=== PATIENT | male | born 1955 | race Hispanic/Latino ===

== ENCOUNTER 2018-08-06 08:51 | Inpatient (IN) | payer MEDICARE ==
--- NOTE | 2018-08-06 09:12 | C.PDOC ---
Time Seen by Provider: 08/06/18 09:02 Chief Complaint (Nursing): Chest Pain Past Medical History Vital Signs: Last Vital Signs Temp 98.5 F 08/06/18 08:58 Pulse 94 H 08/06/18 08:58 Resp 20 08/06/18 08:58 BP 103/68 08/06/18 08:58 Pulse Ox 96 08/06/18 08:58 - Medical History PMH: COPD, HTN, Hypercholesterolemia, Chronic Kidney Disease Denies: Atrial Fibrillation, CHF Surgical History: Coronary Stent (x 2 2014) Family History: States: Unknown Family Hx - Social History Hx Tobacco Use: Yes Hx Alcohol Use: Yes (socially) Hx Substance Use: No - Immunization History Hx Tetanus Toxoid Vaccination: No Hx Influenza Vaccination: No Hx Pneumococcal Vaccination: No ED Course And Treatment O2 Sat by Pulse Oximetry: 96 Disposition - Disposition
[2018-08-06] MEDS ORDERED: Aspirin 325 mg EC Tablets PO STA (09:21)
--- NOTE | 2018-08-06 09:26 | C.PDOC ---
History Of Present Illness 63 years old male with Hx of A-fib (1-year-ago) and 2-Coronary Stents (Many years ago) presents to ED for complaints of worsening shortness of breath and left sided chest pain that began 2 days ago. Patient reports symptoms were sudd en onset and began while he was laying on the ground working. Patient also reports associated mild arm pain. Denies back pain, swelling in lower extremities, pleuritic chest pain, nausea, abdominal pain, or any other physical complaints. Patient is compliant with medication. PMD: Sukhjinder Yanez Lead Radiation Therapist: Sukhjinder Pineda Time Seen by Provider: 08/06/18 09:02 Chief Complaint (Nursing): Chest Pain History Per: Patient History/Exam Limitations: no limitations Onset/Duration Of Symptoms: Days (4), Sudden Onset, Worse Since Current Symptoms Are (Timing): Still Present Modifying Factors: None Exacerbating Factors: Exertion Alleviating Factors: None Recent travel outside of the [place]: No Past Medical History Reviewed: Historical Data, Nursing Documentation, Vital Signs Vital Signs: Last Vital Signs Temp 98.5 F 08/06/18 08:58 Pulse 94 H 08/06/18 08:58 Resp 20 08/06/18 08:58 BP 103/68 08/06/18 08:58 Pulse Ox 96 08/06/18 09:12 - Medical History PMH: Atrial Fibrillation, COPD, HTN, Hypercholesterolemia, Chronic Kidney Disease Surgical History: Coronary Stent (x 2 2015) Family History: States: Unknown Family Hx - Social History Hx Tobacco Use: Yes Hx Alcohol Use: Yes (socially) Hx Substance Use: No - Immunization History Hx Tetanus Toxoid Vaccination: No Hx Influenza Vaccination: No Hx Pneumococcal Vaccination: No Review Of Systems Constitutional: Negative for: Fever, Chills Cardiovascular: Positive for: Chest Pain Respiratory: Positive for: Shortness of Breath. Negative for: Cough, Pleuritic Pain Gastrointestinal: Negative for: Nausea, Vomiting, Abdominal Pain, Diarrhea Musculoskeletal: Positive for: Arm Pain Skin: Negative for: Rash Neurological: Negative for: Weakness, Numbness Physical Exam - Physical Exam Appears: Non-toxic, No Acute Distress, Other (Obese Male) Skin: Normal Color, Warm, Dry, No Rash Head: Atraumatic, Normacephalic Eye(s): bilateral: Normal Inspection, PERRL, EOMI Ear(s): Bilateral: Normal Oral Mucosa: Moist Neck: Normal ROM, Supple Chest: Symmetrical, No Tenderness Cardiovascular: Rhythm Regular, No JVD Respiratory: Normal Breath Sounds, No Decreased Breath Sounds, No Rales, No Rhonchi, No Wheezing Gastrointestinal/Abdominal: Bowel Sounds (Active ), Soft, No Tenderness, No Distention, No Guarding, No Rebound Back: Normal Inspection, No CVA Tenderness Extremity: Normal ROM, No Pedal Edema, No Calf Tenderness, Capillary Refill (<2 seconds ), No Deformity, No Swelling Extremity: Bilateral: Atraumatic, Normal Color And Temperature, Normal ROM Pulses: Left Radial: Normal, Right Radial: Normal Neurological/Psych: Oriented x3, Normal Speech, Other (No focal deficits ) Gait: Steady ED Course And Treatment - Laboratory Results Result Diagrams: 08/06/18 14:37 08/06/18 09:30 O2 Sat by Pulse Oximetry: 96 (RA) Pulse Ox Interpretation: Normal - Other Rad CXR X-Ray: Viewed By Me, Read By Radiologist Interpretation: Date of service: 08/06/2018. PROCEDURE: CHEST RADIOGRAPH, 1 VIEW. HISTORY: chest pain. COMPARISON: None available. FINDINGS: LUNGS: Mild bibasilar atelectasis both lung bases right greater than left. There may also be some discrete linear scarring is well. PLEURA: No pneumothorax or pleural fluid seen. CARDIOVASCULAR: Cardiomegaly. OSSEOUS STRUCTURES: No significant abnormalities. VISUALIZED UPPER ABDOMEN: Normal. OTHER FINDINGS: None. IMPRESSION: Mild bibasilar atelectasis both lung bases right greater than left. There may also be some discrete linear scarring is well Medical Decision Making Medical Decision Making: Plan: * Aspirin * Morphine * Cardizem * CXR * Blood Work EKG: * Sinus A-Fib at 125 bpm * T-Wave abnormalities * 2 AVL * 2 AVF * Changes compared to Prior EKG Cardizem 10mg IV ordered. On re-exam, the heart rate has decreased to 99-103. The case was discussed with Dr. Jon (hospitalist) who agrees to placed the patient on telemetry. The case was discussed with Dr. Doyle (cardiology) who agrees with plan and will consult on the case. Disposition - Disposition Disposition: HOSPITALIZED Disposition Time: 09:45 Condition: GUARDED - Clinical Impression Clinical Impression: Chest pain, ACS (acute coronary syndrome), Atrial fibrillation - PA / APPRENTICE TECHNICIAN / Resident Statement MD/DO has reviewed & agrees with the documentation as recorded. - Scribe Statement The provider has reviewed the documentation as recorded by the Luis Carlton All medical record entries made by the Luis were at my direction and p ersonally dictated by me. I have reviewed the chart and agree that the record accurately reflects my personal performance of the history, physical exam, medical decision making, and the department course for this patient. I have also personally directed, reviewed, and agree with the discharge instructions and disposition.
[2018-08-06 09:34] LABS: BASO # 0.1 K/uL (0.0-0.2); BASO % 0.7 % (0.0-2.0); EOS # 0.1 K/uL (0.0-0.7); HEMOGLOBIN 15.3 g/dL (12.0-18.0); LYMPH # 1.1 K/uL (1.0-4.3); LYMPH % 11.1 % (20.0-40.0); MEAN CORPUSCULAR HEMOGLOBIN 29.3 pg (27.0-31.0); MEAN CORPUSCULAR HGB CONC 33.7 g/dL (33.0-37.0); MEAN PLATELET VOLUME 8.9 fL (7.2-11.7); MONO # 0.8 K/uL (0.0-0.8); MONO % 8.3 % (0.0-10.0); NEUT # 7.5 K/uL (1.8-7.0); NEUT % 78.9 % (50.0-75.0); NRBC % 0.1 % (0.0-2.0); RBC 5.21 Mil/uL (4.40-5.90); RED CELL DISTRIBUTION WIDTH 15.1 % (11.5-14.5); WHITE BLOOD COUNT 9.5 K/uL (4.8-10.8)
[2018-08-06] MEDS ORDERED: Aspirin 325 mg EC Tablets PO ONE (09:34)
[2018-08-06 09:42] LABS: INR 1.2; PROTHROMBIN TIME 12.8 SECONDS (9.7-12.2)
[2018-08-06 09:48] LABS: ALB/GLOB RATIO 1.2 (1.0-2.1); ALBUMIN 3.9 g/dL (3.5-5.0); CALCIUM 9.1 mg/dl (8.6-10.4)
[2018-08-06 10:02] LABS: TROPONIN I 0.018 ng/mL (0.00-0.120)
[2018-08-06 11:36] VITALS: RESP 20
--- NOTE | 2018-08-06 11:59 | CP.PCM.HP ---
History of Present Illness - History of Present Illness History of Present Illness: CC: chest and left shoulder pain HPI: Patient is a 63 year old M with PMHx of A fib, COPD, HTN, HLD, and CKD who presents today with 3-4 days of chest pain and left shoulder pain. 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 Patient said he also had some left sided chest pain and attributed it to the shoulder pain and did not think it was cardiac. Patient said the pain has been constant. Patient did not take any medications for the pain. Today, patient woke up around 5am and said the chest pain was worse and rated it 10/10. Patient also admits to 1 episode of diarrhea yesterday with blood in the toilet bowl. Patient says this has never happened before. Patient had another bowel movement today and saw no blood. Patient last had a colonoscopy 10+ years ago. Patient has no shortness of breath, dizziness, nausea, vomiting, abdominal pain, or constipation. Patient says he is compliant with his medications. PMD: Dr. Yanez Cardio: Dr. 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 absent: Dyspnea, Palpitations - Respiratory Respiratory: absent: Cough - Gastrointestinal Gastrointestinal: absent: Abdominal Pain, Constipation, Diarrhea, Nausea, Vo miting - Genitourinary Genitourinary: absent: Difficulty Urinating, Dysuria, Hematuria - Musculoskeletal Musculoskeletal: absent: Numbness, Tingling - Integumentary Integumentary: absent: Rash - Neurological Neurological: absent: Weakness Past Patient History - Past Medical History & Family History Past Medical History?: Yes - Past Social History Smoking Status: Heavy Smoker > 10 Cigarettes Daily - CARDIAC Hx Atrial Fibrillation: Yes Hx Hypercholesterolemia: Yes Hx Hypertension: Yes - PULMONARY Hx Chronic Obstructive Pulmonary Disease (COPD): Yes - NEUROLOGICAL Hx Neurological Disorder: No - HEENT Hx HEENT Problems: No - RENAL Hx Chronic Kidney Disease: Yes - ENDOCRINE/METABOLIC Hx Endocrine Disorders: No - HEMATOLOGICAL/ONCOLOGICAL Hx Blood Disorders: No - INTEGUMENTARY Hx Dermatological Problems: No - MUSCULOSKELETAL/RHEUMATOLOGICAL Hx Falls: No - GASTROINTESTINAL Hx Gastrointestinal Disorders: No - GENITOURINARY/GYNECOLOGICAL Hx Genitourinary Disorders: No - PSYCHIATRIC Hx Substance Use: No - SURGICAL HISTORY Hx Coronary Stent: Yes (x 2 2014) - ANESTHESIA Hx Anesthesia: Yes Hx Anesthesia Reactions: No Hx Malignant Hyperthermia: No Meds Allergies/Adverse Reactions: Allergies Allergy/AdvReac Type Severity Reaction Status Date / Time No Known Allergies Allergy Unverified 08/06/18 08:58 Physical Exam - Constitutional Appears: Non-toxic, No Acute Distress - Head Exam Head Exam: ATRAUMATIC, NORMAL INSPECTION, NORMOCEPHALIC - Eye Exam Eye Exam: EOMI, Normal appearance - ENT Exam ENT Exam: Mucous Membranes Moist - Respiratory Exam Respiratory Exam: Clear to Auscultation Bilateral, NORMAL BREATHING PATTERN. absent: Rales, Rhonchi, Wheezes - Cardiovascular Exam Cardiovascular Exam: Tachycardia, +S1, +S2. absent: REGULAR RHYTHM - GI/Abdominal Exam GI & Abdominal Exam: Normal Bowel Sounds, Soft. absent: Tenderness - Rectal Exam Rectal Exam: NORMAL INSPECTION. absent: Hemorrhoids Additional comments: brown stool, no blood seen - Extremities Exam Extremities exam: Positive for: normal inspection, pedal edema - Neurological Exam Neurological exam: Alert, Oriented x3 - Psychiatric Exam Psychiatric exam: Normal Affect, Normal Mood - Skin Skin Exam: Intact, Normal Color, Warm Results - Vital Signs Recent Vital Signs: Last Vital Signs Temp 98.4 F 08/06/18 11:35 Pulse 96 H 08/06/18 11:35 Resp 20 08/06/18 11:35 BP 143/93 H 08/06/18 11:35 Pulse Ox 98 08/06/18 11:35 - Labs Result Diagrams: 08/06/18 14:37 08/06/18 09:30 Labs: Laboratory Results - last 24 hr 08/06/18 08/06/18 08/06/18 09:30 09:30 09:30 WBC 9.5 RBC 5.21 Hgb 15.3 Hct 45.3 MCV 87.0 MCH 29.3 MCHC 33.7 RDW 15.1 H Plt Count 167 MPV 8.9 Neut % (Auto) 78.9 H Lymph % (Auto) 11.1 L [place] % (Auto) 8.3 Eos % (Auto) 1.0 Baso % (Auto) 0.7 Neut # (Auto) 7.5 H Lymph # (Auto) 1.1 [place] # (Auto) 0.8 Eos # (Auto) 0.1 Baso # (Auto) 0.1 PT 12.8 H INR 1.2 APTT 39 H Sodium 143 Potassium 4.6 Chloride 110 H Carbon Dioxide 20 L Anion Gap 17 BUN 30 H Creatinine 2.5 H Est GFR ( Amer) 32 Est GFR (Non-Af Amer) 26 Random Glucose 110 Calcium 9.1 Total Bilirubin 0.6 AST 17 ALT 26 Alkaline Phosphatase 94 Troponin I 0.0180 NT-Pro-B Natriuret Pep 3090 H Total Protein 7.0 Albumin 3.9 Globulin 3.2 Albumin/Globulin Ratio 1.2 Assessment & Plan - Assessment and Plan (Free Text) Assessment: Atrial fibrillation * admit to tele * Cardizem 10mg ivp given in ER * CHADS: 2 * HASBLED: 2 * Cardiology (Dr. Doyle) on board * Monitor on telemetry * check thyroid studies, d-dimer, echocardiogram * Continue Eliquis 2.5mg po BID * start Metoprolol 50mg q8h Chest Pain * given Aspirin 325 mg PO in the ED and Nitroglycerin .4mg sl * Troponin: negative, followup AILYN with EKG, Q 6hours X2 sets * D dimer negative * continue Eliquis 2.5mg po BID, Crestor 10mg po HS, Lopressor 100mg po BID Episode of Bloody Diarrhea * HgB stable, repeat CBC * f/u stool culture, ova, parasite * stool occult * Protonix 40mg ivp q12h * GI constuled, Dr. Cox, help appreciated HTN * continue Norvasc 10mg po daily, Eliquis 2.5mg po BID, Hydralazine 50mg po mera y, Metoprolol 100mg po BID Coronary artery disease * prior stents * Received Aspirin in ED, started on Xarelto * on statin Chronic Kidney Disease * continue to monitor BPH * Doxazosin 2mg po daily Prophylactic measure * SCDs * Protonix 40mg ivp q12h Discussed with Dr. Jon
--- NOTE | 2018-08-06 13:01 | RAD ---
Date of service: 08/06/2018 PROCEDURE: CHEST RADIOGRAPH, 1 VIEW HISTORY: chest pain COMPARISON: None available. FINDINGS: LUNGS: Mild bibasilar atelectasis both lung bases right greater than left. There may also be some discrete linear scarring is well PLEURA: No pneumothorax or pleural fluid seen. CARDIOVASCULAR: Cardiomegaly. OSSEOUS STRUCTURES: No significant abnormalities. VISUALIZED UPPER ABDOMEN: Normal. OTHER FINDINGS: None. IMPRESSION: Mild bibasilar atelectasis both lung bases right greater than left. There may also be some discrete linear scarring is well
[2018-08-06 13:32] VITALS: O2SAT 96
--- NOTE | 2018-08-06 13:47 | CP.PCM.CON ---
History of Present Illness - History of Present Illness History of Present Illness: This is a 63 year old man with history of A fib and CAD, S/P stents, admitted with CP. GI consulted for rectal bleeding. Patient has 3-4 days of chest pain and left shoulder pain, worse today on awakening. Yesterday, he had two bowel movements, one of which was liquid and bloody. He denies having abdominal pain, nausea, vomiting, heartburn, difficulty swallowing, prior constipation and diarrhea. His appetite has been good, and is weight has been stable. He also denies having shortness of breathe and dizziness. He had a colonoscopy 10 years ago, but the results are not available at present. Review of Systems - Constitutional Constitutional: absent: Chills, Fever - EENT Eyes: absent: Blurred Vision - Cardiovascular Cardiovascular: Chest Pain, Pedal Edema. absent: Palpitations - Respiratory Respiratory: absent: Cough - Gastrointestinal Gastrointestinal: Diarrhea, Hematochezia. absent: Abdominal Pain, Constipation, Dysphagia, Heartburn, Nausea, Vomiting - Genitourinary Genitourinary: absent: Difficulty Urinating, Dysuria - Musculoskeletal Musculoskeletal: absent: Numbness, Tingling - Integumentary Integumentary: absent: Rash Past Patient History - Past Medical History & Family History Past Medical History?: Yes - Past Social History Smoking Status: Heavy Smoker > 10 Cigarettes Daily - CARDIAC Hx Atrial Fibrillation: Yes Hx Hypercholesterolemia: Yes Hx Hypertension: Yes - PULMONARY Hx Chronic Obstructive Pulmonary Disease (COPD): Yes - NEUROLOGICAL Hx Neurological Disorder: No - HEENT Hx HEENT Problems: No - RENAL Hx Chronic Kidney Disease: Yes - ENDOCRINE/METABOLIC Hx Endocrine Disorders: No - HEMATOLOGICAL/ONCOLOGICAL Hx Blood Disorders: No - INTEGUMENTARY Hx Dermatological Problems: No - MUSCULOSKELETAL/RHEUMATOLOGICAL Hx Falls: No - GASTROINTESTINAL Hx Gastrointestinal Disorders: No - GENITOURINARY/GYNECOLOGICAL Hx Genitourinary Disorders: No - PSYCHIATRIC Hx Substance Use: No - SURGICAL HISTORY Hx Coronary Stent: Yes (x 2 2014) - ANESTHESIA Hx Anesthesia: Yes Hx Anesthesia Reactions: No Hx Malignant Hyperthermia: No Meds Allergies/Adverse Reactions: Allergies Allergy/AdvReac Type Severity Reaction Status Date / Time No Known Allergies Allergy Unverified 08/06/18 08:58 - Medications Medications: Current Medications Amlodipine Besylate (Norvasc) 10 mg PO DAILY RADHA Apixaban (Eliquis) 2.5 mg PO BID RADHA Doxazosin Mesylate (Cardura) 2 mg PO DAILY RADHA Hydralazine HCl (Apresoline) 50 mg PO DAILY [facility]HA Metoprolol Tartrate (Lopressor) 100 mg PO BID [facility] Pantoprazole Sodium (Protonix Inj) 40 mg IVP Q12H [facility] Rosuvastatin Calcium (Crestor) 10 mg PO HS [facility] Results - Vital Signs Recent Vital Signs: Last Vital Signs Temp 97.7 F 08/06/18 12:10 Pulse 87 08/06/18 12:10 Resp 20 08/06/18 12:10 BP 151/91 H 08/06/18 12:10 Pulse Ox 96 08/06/18 13:32 - Labs Result Diagrams: 08/06/18 09:30 08/06/18 09:30 Labs: Laboratory Results - last 24 hr 08/06/18 08/06/18 08/06/18 09:30 09:30 09:30 WBC 9.5 RBC 5.21 Hgb 15.3 Hct 45.3 MCV 87.0 MCH 29.3 MCHC 33.7 RDW 15.1 H Plt Count 167 MPV 8.9 Neut % (Auto) 78.9 H Lymph % (Auto) 11.1 L [place] % (Auto) 8.3 Eos % (Auto) 1.0 Baso % (Auto) 0.7 Neut # (Auto) 7.5 H Lymph # (Auto) 1.1 [place] # (Auto) 0.8 Eos # (Auto) 0.1 Baso # (Auto) 0.1 PT 12.8 H INR 1.2 APTT 39 H Sodium 143 Potassium 4.6 Chloride 110 H Carbon Dioxide 20 L Anion Gap 17 BUN 30 H Creatinine 2.5 H Est GFR ( Amer) 32 Est GFR (Non-Af Amer) 26 Random Glucose 110 Calcium 9.1 Total Bilirubin 0.6 AST 17 ALT 26 Alkaline Phosphatase 94 Troponin I 0.0180 NT-Pro-B Natriuret Pep 3090 H Total Protein 7.0 Albumin 3.9 Globulin 3.2 Albumin/Globulin Ratio 1.2 Assessment & Plan (1) Rectal bleeding Assessment and Plan: Patient noted rectal bleeding yesterday, but none today. The HGB is 15.3, which will be repeated. Plan is for colonoscopy after patient has been cleared by cardiology. Status: Acute
[2018-08-06 14:44] LABS: HEMOGLOBIN 14.7 g/dL (12.0-18.0); MEAN CELL VOLUME 86.5 fL (80.0-94.0); MEAN CORPUSCULAR HEMOGLOBIN 29.6 pg (27.0-31.0); MEAN CORPUSCULAR HGB CONC 34.2 g/dL (33.0-37.0); RBC 4.96 Mil/uL (4.40-5.90); RED CELL DISTRIBUTION WIDTH 15.6 % (11.5-14.5); WHITE BLOOD COUNT 8.5 K/uL (4.8-10.8)
--- NOTE | 2018-08-06 16:48 | CP.PCM.CON ---
History of Present Illness - History of Present Illness History of Present Illness: THe patient is a 63 year old man with HTN, episodic atrial fibrillation, and CKD (baseline cr 2.2). He has CAD< and had coronary stenting of the RCA in 2005. A nuclear stress last year was normal, and echo demonstrated normal LV EF, mild to moderate MR. The patient has not seen me in the office since 2017. I had only one visit with him, he had been seeing Dr Kumar before that. He has not followed up since then, but says that he taking his meds as prescribed. the patient has not been feeling well for a month, and has had constant cub sternal chest pain, non radiating for 4 days straight without relief. No chest pain now. In the ER, it was noted that he ws in rapid atrial fibrillation. IV cardezem bolus and sl nitro were administered. Heart rate slowed and bp lowered to 102 systolic. BP now elevated and heart rate picked up again. Pt apparently had rectal bleeding, normal HGb, and Dr pritchard was called in. . Past Patient History - Past Medical History & Family History Past Medical History?: Yes - Past Social History Smoking Status: Heavy Smoker > 10 Cigarettes Daily - CARDIAC Hx Atrial Fibrillation: Yes Hx Hypercholesterolemia: Yes Hx Hypertension: Yes - PULMONARY Hx Chronic Obstructive Pulmonary Disease (COPD): Yes - NEUROLOGICAL Hx Neurological Disorder: No - HEENT Hx HEENT Problems: No - RENAL Hx Chronic Kidney Disease: Yes - ENDOCRINE/METABOLIC Hx Endocrine Disorders: No - HEMATOLOGICAL/ONCOLOGICAL Hx Blood Disorders: No - INTEGUMENTARY Hx Dermatological Problems: No - MUSCULOSKELETAL/RHEUMATOLOGICAL Hx Falls: No - GASTROINTESTINAL Hx Gastrointestinal Disorders: No - GENITOURINARY/GYNECOLOGICAL Hx Genitourinary Disorders: No - PSYCHIATRIC Hx Substance Use: No - SURGICAL HISTORY Hx Coronary Stent: Yes (x 2 2014) - ANESTHESIA Hx Anesthesia: Yes Hx Anesthesia Reactions: No Hx Malignant Hyperthermia: No Meds Allergies/Adverse Reactions: Allergies Allergy/AdvReac Type Severity Reaction Status Date / Time No Known Allergies Allergy Unverified 08/06/18 08:58 - Medications Medications: Current Medications Amlodipine Besylate (Norvasc) 10 mg PO DAILY RADHA Apixaban (Eliquis) 2.5 mg PO BID RADHA Doxazosin Mesylate (Cardura) 2 mg PO DAILY RADHA Hydralazine HCl (Apresoline) 50 mg PO DAILY [facility]HA Metoprolol Tartrate (Lopressor) 100 mg PO BID [facility] Metoprolol Tartrate (Lopressor) 50 mg PO Q8H [facility] Pantoprazole Sodium (Protonix Inj) 40 mg IVP Q12H [facility] Last Admin: 08/06/18 14:35 Dose: 40 mg Rosuvastatin Calcium (Crestor) 10 mg PO HS [facility] Physical Exam - Constitutional Appears: Well, No Acute Distress - Eye Exam Eye Exam: EOMI - ENT Exam ENT Exam: Mucous Membranes Moist - Neck Exam Neck exam: Positive for: Normal Inspection - Respiratory Exam Respiratory Exam: Clear to Auscultation Bilateral - Cardiovascular Exam Cardiovascular Exam: Irregular Rhythm - GI/Abdominal Exam GI & Abdominal Exam: Normal Bowel Sounds - Exam External exam: NORMAL EXTERNAL EXAM - Extremities Exam Extremities exam: Positive for: normal inspection - Neurological Exam Neurological exam: Alert, Oriented x3, Reflexes Normal - Psychiatric Exam Psychiatric exam: Normal Affect, Normal Mood - Skin Skin Exam: Normal Color Results - Vital Signs Recent Vital Signs: Last Vital Signs Temp 97.7 F 08/06/18 12:10 Pulse 98 H 08/06/18 15:20 Resp 20 08/06/18 12:10 BP 151/91 H 08/06/18 12:10 Pulse Ox 96 08/06/18 13:32 - Labs Result Diagrams: 08/06/18 14:37 08/06/18 09:30 Labs: Laboratory Results - last 24 hr 08/06/18 08/06/1818 09:30 09:30 09:30 WBC 9.5 RBC 5.21 Hgb 15.3 Hct 45.3 MCV 87.0 MCH 29.3 MCHC 33.7 RDW 15.1 H Plt Count 167 MPV 8.9 Neut % (Auto) 78.9 H Lymph % (Auto) 11.1 L [place] % (Auto) 8.3 Eos % (Auto) 1.0 Baso % (Auto) 0.7 Neut # (Auto) 7.5 H Lymph # (Auto) 1.1 [place] # (Auto) 0.8 Eos # (Auto) 0.1 Baso # (Auto) 0.1 PT 12.8 H INR 1.2 APTT 39 H D-Dimer, Quantitative Sodium 143 Potassium 4.6 Chloride 110 H Carbon Dioxide 20 L Anion Gap 17 BUN 30 H Creatinine 2.5 H Est GFR ( Amer) 32 Est GFR (Non-Af Amer) 26 Random Glucose 110 Calcium 9.1 Total Bilirubin 0.6 AST 17 ALT 26 Alkaline Phosphatase 94 Troponin I 0.0180 NT-Pro-B Natriuret Pep 3090 H Total Protein 7.0 Albumin 3.9 Globulin 3.2 Albumin/Globulin Ratio 1.2 08/06/18 08/06/18 14:37 14:37 WBC 8.5 RBC 4.96 Hgb 14.7 Hct 42.9 MCV 86.5 MCH 29.6 MCHC 34.2 RDW 15.6 H Plt Count 156 MPV 9.0 Neut % (Auto) Lymph % (Auto) [place] % (Auto) Eos % (Auto) Baso % (Auto) Neut # (Auto) Lymph # (Auto) [place] # (Auto) Eos # (Auto) Baso # (Auto) PT INR APTT D-Dimer, Quantitative < 200 Sodium Potassium Chloride Carbon Dioxide Anion Gap BUN Creatinine Est GFR ( Amer) Est GFR (Non-Af Amer) Random Glucose Calcium Total Bilirubin AST ALT Alkaline Phosphatase Troponin I NT-Pro-B Natriuret Pep Total Protein Albumin Globulin Albumin/Globulin Ratio - EKG Data EKG Interpreted by: Myself (ecg : atrial fib, LVH, non spedific st changes) Assessment & Plan - Assessment and Plan (Free Text) Assessment: 1. Chest pain: ALthough pt has known CAD, chest pain wa atypical, in that it lasted for 4 days straight, and initial TNI negative. ALso, normal nuclear stress test last year. Once afib issues are resolved, pt can have a repeat stress test. Cath would only be advised if pt was definitley ischemic, as he has CKD and dye could lead to worsened kidny function. 2. Afib: will increase metoprolol to 100 bid. If HR still not controlled, and BP not low, would add cardezem. Would then re assess symptoms with controlled heart rate and BP. Pt would have the option of cardioversion if still symptomatic in afib. If on the other hand, patient converts with increased meds, would likely add amiodarone. 3. Pt has cad, and asa is also advised, 81. This increases rectal bleeding risk, probably hemorrhoids if bright risk. If pt is to be cardioverted, then anticoagulation would not be able to be stopped as there is a high risk of stroke in the post cardioversion period .
[2018-08-06 22:17] LABS: CK-MB 0.44 ng/mL (0.0-3.38); TROPONIN I 0.014 ng/mL (0.00-0.120)
[2018-08-06 23:45] LABS: TROPONIN I 0.017 ng/mL (0.00-0.120)
[2018-08-07 00:24] VITALS: TEMP 98.2
[2018-08-07 01:20] LABS: CK-MB 0.39 ng/mL (0.0-3.38)
[2018-08-07 06:38] LABS: BASO # 0.1 K/uL (0.0-0.2); BASO % 0.8 % (0.0-2.0); EOS # 0.1 K/uL (0.0-0.7); EOS % 1.9 % (0.0-4.0); HEMOGLOBIN 14.9 g/dL (12.0-18.0); LYMPH # 1.5 K/uL (1.0-4.3); LYMPH % 18.5 % (20.0-40.0); MEAN CELL VOLUME 86.9 fL (80.0-94.0); MEAN CORPUSCULAR HEMOGLOBIN 28.9 pg (27.0-31.0); MEAN CORPUSCULAR HGB CONC 33.3 g/dL (33.0-37.0); MEAN PLATELET VOLUME 9.5 fL (7.2-11.7); MONO # 0.9 K/uL (0.0-0.8); MONO % 11.6 % (0.0-10.0); NEUT # 5.3 K/uL (1.8-7.0); NEUT % 67.2 % (50.0-75.0); NRBC % 0.1 % (0.0-2.0); RBC 5.15 Mil/uL (4.40-5.90); RED CELL DISTRIBUTION WIDTH 15.5 % (11.5-14.5); WHITE BLOOD COUNT 7.9 K/uL (4.8-10.8)
[2018-08-07 07:45] VITALS: BP 138/80
[2018-08-07 08:16] VITALS: PULSE 110
--- NOTE | 2018-08-07 09:37 | CP.PCM.PN ---
Subjective - Date & Time of Evaluation Date of Evaluation: 08/07/18 Time of Evaluation: 09:33 - Subjective Subjective: Pt had a quiet night Heart rate was up, I ordered po cardezem and it was slower during the night, with better bp. Pt now awake, walked several times in the [place] and felt well. Resting heart rte 120 bpm before meds. TNI neg times three. Objective - Vital Signs/Intake and Output Vital Signs (last 24 hours): Temp Pulse Resp BP Pulse Ox 98.2 F 110 H 20 138/80 96 08/07/18 07:44 08/07/18 08:00 08/07/18 07:44 08/07/18 07:44 08/07/18 07:44 Intake and Output: 08/07/18 08/07/18 06:59 18:59 Intake Total 240 Balance 240 - Medications Medications: Current Medications Apixaban (Eliquis) 2.5 mg PO BID [facility] Last Admin: 08/06/18 18:10 Dose: 2.5 mg Aspirin (Aspirin Chewable) 81 mg PO DAILY [facility] Diltiazem HCl (Cardizem) 60 mg PO BID [facility] Last Admin: 08/06/18 22:31 Dose: 60 mg Doxazosin Mesylate (Cardura) 2 mg PO DAILY [facility] Hydralazine HCl (Apresoline) 50 mg PO TID [facility] Last Admin: 08/06/18 18:10 Dose: 50 mg Metoprolol Tartrate (Lopressor) 100 mg PO Q12 [facility] Last Admin: 08/06/18 22:32 Dose: 100 mg Pantoprazole Sodium (Protonix Inj) 40 mg IVP Q12H [facility] Last Admin: 08/07/18 01:31 Dose: Not Given Rosuvastatin Calcium (Crestor) 10 mg PO HS [facility] Last Admin: 08/06/18 22:32 Dose: 10 mg - Labs Labs: 08/07/18 06:25 08/06/18 09:30 PT 12.8 SECONDS (9.7-12.2) H 08/06/18 09:30 INR 1.2 08/06/18 09:30 APTT 39 SECONDS (21-34) H 08/06/18 09:30 - Constitutional Appears: Well - Head Exam Head Exam: ATRAUMATIC - Eye Exam Eye Exam: Periorbital tenderness - ENT Exam ENT Exam: Mucous Membranes Moist - Respiratory Exam Respiratory Exam: Clear to Ausculation Bilateral - Cardiovascular Exam Cardiovascular Exam: Irregular Rhythm - Exam External exam: NORMAL EXTERNAL EXAM - Extremities Exam Extremities Exam: Full ROM - Back Exam Back Exam: NORMAL INSPECTION - Neurological Exam Neurological Exam: Alert - Psychiatric Exam Psychiatric exam: Normal Affect, Normal Mood - Skin Skin Exam: Normal Color Assessment and Plan - Assessment and Plan (Free Text) Assessment: 1. Afig: still not controlled; pt advised to stay for cardioversion, but he wants to go home. pt will go home with metoprolol 100 bid, and his previous other outpatient meds. Stop po cardezem. He will rest, stay home, and come for elective CV this week, 2. BP is better. 3. Pt has cad, and atypical rest pain, now resolved, and neg tni. Pt will need a stress test, but as mentioned, he wants to go home. Pt will have another outpatient stress, but is told to return to the hospital if chest pain recurs.
--- NOTE | 2018-08-07 09:41 | CP.PCM.PN ---
Subjective - Date & Time of Evaluation Date of Evaluation: 08/07/18 Time of Evaluation: 09:38 - Subjective Subjective: Patient denies having nausea, vomiting, abdominal pain. He has not had a bowel movement overnight. He denies having any further rectal bleeding. Objective - Vital Signs/Intake and Output Vital Signs (last 24 hours): Temp Pulse Resp BP Pulse Ox 98.2 F 110 H 20 138/80 96 08/07/18 07:44 08/07/18 08:00 08/07/18 07:44 08/07/18 07:44 08/07/18 07:44 Intake and Output: 08/07/18 08/07/18 06:59 18:59 Intake Total 240 Balance 240 - Medications Medications: Current Medications Apixaban (Eliquis) 2.5 mg PO BID [facility] Last Admin: 08/06/18 18:10 Dose: 2.5 mg Aspirin (Aspirin Chewable) 81 mg PO DAILY [facility] Doxazosin Mesylate (Cardura) 2 mg PO DAILY [facility] Hydralazine HCl (Apresoline) 50 mg PO TID [facility] Last Admin: 08/06/18 18:10 Dose: 50 mg Metoprolol Tartrate (Lopressor) 100 mg PO Q12 [facility] Last Admin: 08/06/18 22:32 Dose: 100 mg Pantoprazole Sodium (Protonix Inj) 40 mg IVP Q12H [facility] Last Admin: 08/07/18 01:31 Dose: Not Given Rosuvastatin Calcium (Crestor) 10 mg PO HS [facility] Last Admin: 08/06/18 22:32 Dose: 10 mg - Labs Labs: 08/07/18 06:25 08/06/18 09:30 PT 12.8 SECONDS (9.7-12.2) H 08/06/18 09:30 INR 1.2 08/06/18 09:30 APTT 39 SECONDS (21-34) H 08/06/18 09:30 - Constitutional Appears: No Acute Distress - Head Exam Head Exam: ATRAUMATIC, NORMOCEPHALIC - Eye Exam Eye Exam: EOMI, PERRL - Neck Exam Neck Exam: absent: Lymphadenopathy, Thyromegaly - Respiratory Exam Respiratory Exam: NORMAL BREATHING PATTERN. absent: Rales, Rhonchi, Wheezes - Cardiovascular Exam Cardiovascular Exam: REGULAR RHYTHM, +S1, +S2. absent: Gallop, Rubs, Murmur - GI/Abdominal Exam GI & Abdominal Exam: Soft, Normal Bowel Sounds. absent: Tenderness, Mass, Organomegaly - Rectal Exam Rectal Exam: Deferred - Extremities Exam Extremities Exam: absent: Calf Tenderness, Pedal Edema Assessment and Plan (1) Rectal bleeding Assessment & Plan: Rectal bleeding has not recurred. The hemoglobin is stable at 14.9. Patient should have colonoscopy when cleared by cardiology, which may be done as an outpatient. Status: Acute
--- NOTE | 2018-08-07 20:31 | CP.PCM.DIS ---
Provider - Provider Date of Admission: 08/06/18 10:20 Attending physician: Chayo Jon DO Time Spent in preparation of Discharge (in minutes): 120 Diagnosis - Discharge Diagnosis (1) Left against medical advice Status: Acute (2) New onset atrial fibrillation Status: Acute (3) Chest pain Status: Acute (4) ACS (acute coronary syndrome) Status: Chronic (5) HTN (hypertension) Status: Chronic Hospital Course - Lab Results Lab Results: Most Recent Lab Values WBC 7.9 K/uL (4.8-10.8) 08/07/18 06:25 RBC 5.15 Mil/uL (4.40-5.90) 08/07/18 06:25 Hgb 14.9 g/dL (12.0-18.0) 08/07/18 06:25 Hct 44.8 % (35.0-51.0) 08/07/18 06:25 MCV 86.9 fL (80.0-94.0) 08/07/18 06:25 MCH 28.9 pg (27.0-31.0) 08/07/18 06:25 MCHC 33.3 g/dL (33.0-37.0) 08/07/18 06:25 RDW 15.5 % (11.5-14.5) H 08/07/18 06:25 Plt Count 160 K/uL (130-400) 08/07/18 06:25 MPV 9.5 fL (7.2-11.7) 08/07/18 06:25 Neut % (Auto) 67.2 % (50.0-75.0) 08/07/18 06:25 Lymph % (Auto) 18.5 % (20.0-40.0) L 08/07/18 06:25 [place] % (Auto) 11.6 % (0.0-10.0) H 08/07/18 06:25 Eos % (Auto) 1.9 % (0.0-4.0) 08/07/18 06:25 Baso % (Auto) 0.8 % (0.0-2.0) 08/07/18 06:25 Neut # (Auto) 5.3 K/uL (1.8-7.0) 08/07/18 06:25 Lymph # (Auto) 1.5 K/uL (1.0-4.3) 08/07/18 06:25 [place] # (Auto) 0.9 K/uL (0.0-0.8) H 08/07/18 06:25 Eos # (Auto) 0.1 K/uL (0.0-0.7) 08/07/18 06:25 Baso # (Auto) 0.1 K/uL (0.0-0.2) 08/07/18 06:25 PT 12.8 SECONDS (9.7-12.2) H 08/06/18 09:30 INR 1.2 08/06/18 09:30 APTT 39 SECONDS (21-34) H 08/06/18 09:30 D-Dimer, Quantitative < 200 ng/mlDDU (0-243) 08/06/18 14:37 Sodium 143 mmol/L (132-148) 08/06/18 09:30 Potassium 4.6 mmol/L (3.6-5.2) 08/06/18 09:30 Chloride 110 mmol/L (98-107) H 08/06/18 09:30 Carbon Dioxide 20 mmol/L (22-30) L 08/06/18 09:30 Anion Gap 17 (10-20) 08/06/18 09:30 BUN 30 mg/dL (9-20) H 08/06/18 09:30 Creatinine 2.5 mg/dL (0.8-1.5) H 08/06/18 09:30 Est GFR ( Amer) 32 08/06/18 09:30 Est GFR (Non-Af Amer) 26 08/06/18 09:30 Random Glucose 110 mg/dL (75-110) 08/06/18 09:30 Hemoglobin A1c 5.8 % (4.2-6.5) 08/07/18 06:25 Calcium 9.1 mg/dl (8.6-10.4) 08/06/18 09:30 Total Bilirubin 0.6 mg/dL (0.2-1.3) 08/06/18 09:30 AST 17 U/L (17-59) 08/06/18 09:30 ALT 26 U/L (21-72) 08/06/18 09:30 Alkaline Phosphatase 94 U/L (38-126) 08/06/18 09:30 Total Creatine Kinase 32 U/L (55-170) L 08/06/18 23:19 CK-MB (Mass) 0.39 ng/mL (0.0-3.38) 08/06/18 23:19 Troponin I 0.0170 ng/mL (0.00-0.120) 08/06/18 23:19 NT-Pro-B Natriuret Pep 3090 pg/mL (0-900) H 08/06/18 09:30 Total Protein 7.0 g/dL (6.3-8.3) 08/06/18 09:30 Albumin 3.9 g/dL (3.5-5.0) 08/06/18 09:30 Globulin 3.2 gm/dL (2.2-3.9) 08/06/18 09:30 Albumin/Globulin Ratio 1.2 (1.0-2.1) 08/06/18 09:30 Triglycerides 118 mg/dL (0-149) 08/07/18 06:25 Cholesterol 153 mg/dL (0-199) 08/07/18 06:25 LDL Cholesterol Direct 96 mg/dL (0-129) 08/07/18 06:25 HDL Cholesterol 29 mg/dL (30-70) L 08/07/18 06:25 TSH 3rd Generation 2.41 mIU/L (0.46-4.68) 08/07/18 06:25 - Hospital Course Hospital Course: On admission: Patient is a 63 year old M with PMHx of A fib, COPD, HTN, HLD, and CKD who presents today with 3-4 days of chest pain and left shoulder pain. 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 Patient said he also had some left sided chest pain and attributed it to the shoulder pain and did not think it was cardiac. Patient said the pain has been constant. Patient did not take any medications for the pain. Today, patient woke up around 5am and said the chest pain was worse and rated it 10/10. Patient also admits to 1 episode of diarrhea yesterday with blood in the toilet bowl. Patient says this has never happened before. Patient had another bowel movement today and saw no blood. Patient last had a colonoscopy 10+ years ago. Patient has no shortness of breath, dizziness, nausea, vomiting, abdominal pain, or c onstipation. Patient says he is compliant with his medications. On hospitalization: Patient was admitted for diagnosis of Atrial fibrillation and chest pain. PAtient was admitted to telemetry, EKg showed atrial fibrillation with rapid ventricular response, ST and t wave abnormalities. Pt was given cardizem 10 mg IVP in ER, continue elliquis 2.5 mg po BID, crestor 10 mg po HS, lopressor (metoprolol) 50 mg po q8h. Patient was given aspirin and nitroglycerin for chest pain. Topronin x2 were negative. CK Mb was negative. D dimer were negative. thyroid studies, echocardiogram were ordered. Cardiologis Dr Doyle was consulted - his recs included increasing metoprolol to 100 BID, repeat stress test once afib issues resolved. for the management of episode of blood diarrhea, CBC was obtained, Hgb was detected to be stable. Stool culture, ova and parasite were obtained, stool occult was also obtained. Protonix 40 mg IVP q [address] Cox was consulted, who recommended colonoscopy after patient being cleared from cardiology . For management of history of HTN, norvasc 10 mg po daily,hydralazine 50 mg po daily were continued, alongside with eliquis and metoprolol. for history of cad s/p stent placement, aspirin was administered in ED. Patient was continued on statin. for history of BPH, patient was continue on doxazosin 2mg po daily. On Tuesday08/07/2018, patient expressed that he wanted to leave the hospital after seeing Dr Doyle. As Per Doctor Yanira, Patient was advised to stay for cardioversion, but patient did not wanted to stay, and wanted to go home. Patient was given metoprolol 100 bid and his home meds. Cardizem was stopped. Patient was instructed to follow up for elective cardioversion this week. Blood pressure was noted to have improved, as well as chest pain and bloody stool. Patient was instructed to follow up for elective stress test as outpatient, patient was instructed to reutrn to hospital if chest pain recurs. Patient was given the following meds: hydralazine 50 mg po TID, metoprolol 100 PO BId. After explaining the risks of leaving against medical advice, including worsening symptoms of chest pain, shortness of breath, demise and , and patient agreeing to these, patient signed the against medical advice form on 08/07/2018, with morning shift nurse as witness. This is a brief summary of patient's course of hospitalization. for more information, please refer to patient's EMR. - Date & Time of H&P Date of H&P: 08/06/18 Time of H&P: 09:00 Discharge Exam - Head Exam Head Exam: ATRAUMATIC, NORMOCEPHALIC - Eye Exam Eye Exam: EOMI, Normal appearance - ENT Exam ENT Exam: Mucous Membranes Moist, Normal Exam - Neck Exam Neck exam: Full Rom, Normal Inspection - Respiratory Exam Respiratory Exam: Clear to PA & Lateral, NORMAL BREATHING PATTERN, UNREMARKABLE - Cardiovascular Exam Cardiovascular Exam: Irregular Rhythm - GI/Abdominal Exam GI & Abdominal Exam: Normal Bowel Sounds, Unremarkable - Extremities Exam Extremities exam: full ROM, normal inspection - Back Exam Back exam: NORMAL INSPECTION - Neurological Exam Neurological exam: Alert, Normal Gait, Oriented x3 - Psychiatric Exam Psychiatric exam: Normal Affect, Normal Mood - Skin Skin Exam: Intact, Normal Color, Warm Discharge Plan - Discharge Medications Prescriptions: hydrALAZINE [Apresoline] 50 mg PO TID #90 tab Metoprolol Tartrate [Lopressor] 100 mg PO BID #60 tab - Follow Up Plan Condition: GOOD Disposition: AGAINST MEDICAL ADVICE
== END 2018-08-07 10:09 | disposition left against medical advice (07) | DRG 303 ==
LOC: C.ER 08:51 → C.9E 10:20 → C.5S 11:18
PROVIDERS: ADMIT Hospitalist; ATTEND Hospitalist
DX: I25.110 Atherosclerotic heart disease of native coronary artery with unstable angina pectoris (principal); K62.5 Hemorrhage of anus and rectum; E78.00 Pure hypercholesterolemia, unspecified; I12.9 Hypertensive chronic kidney disease with stage 1 through stage 4 chronic kidney disease, or unspecified chronic kidney disease; F12.90 Cannabis use, unspecified, uncomplicated; I48.91 Unspecified atrial fibrillation; N18.9 Chronic kidney disease, unspecified; J44.9 Chronic obstructive pulmonary disease, unspecified; N40.0 Benign prostatic hyperplasia without lower urinary tract symptoms; Z79.01 Long term (current) use of anticoagulants; Z95.5 Presence of coronary angioplasty implant and graft; Z82.3 Family history of stroke; Z83.3 Family history of diabetes mellitus; F17.210 Nicotine dependence, cigarettes, uncomplicated; R19.7 Diarrhea, unspecified

== ENCOUNTER 2018-08-10 07:57 | Day surgery (SDC) | payer MEDICARE ==
[2018-08-10] MEDS ORDERED: Lidocaine 4% (Laryng-O-Jet) Kit MM ONE (08:50)
[2018-08-10] MEDS ORDERED: Midazolam 2 MG/2 ML VIAL ONE (09:08)
[2018-08-10] MEDS ORDERED: Propofol 10 mg/ml Inj (20 ML) ONE ×2 (09:09→09:22)
[2018-08-10 09:42] VITALS: BMI 32.8
--- NOTE | 2018-08-16 13:15 | CARD ---
APPROVED REPORT Date of service: 08/10/2018 EXAM: Transesophageal echocardiogram with color flow Doppler and Synchronized Cardioversion. INDICATION Atrial Fibrillation Mitral Valve E/A ratio0.0 TDI E/Lateral E'0.0E/Medial E'0.0 LEFT VENTRICLE The left ventricle is normal size. There is moderate concentric left ventricular hypertrophy. The left ventricular function is normal. The left ventricular ejection fraction is within the normal range. 55% No regional wall motion abnormalities noted. No left ventricle thrombus noted on this study. There is no ventricular septal defect visualized. There is no left ventricular aneurysm. There is no mass noted in the left ventricle. RIGHT VENTRICLE The right ventricle is normal size. There is normal right ventricular wall thickness. The right ventricular systolic function is normal. ATRIA No appendage thrombus. The right atrium size is normal. With color doppler, no intra-cardiac shunt. The interatrial septum is intact with no evidence for an atrial septal defect. AORTIC VALVE The aortic valve is normal in structure and function. No aortic regurgitation is present. There is no aortic valvular stenosis. There is no aortic valvular vegetation. MITRAL VALVE The mitral valve is normal in structure and function. There is no evidence of mitral valve prolapse. There is no mitral valve stenosis. There is mild mitral valve regurgitation noted. TRICUSPID VALVE The tricuspid valve is normal in structure and function. There is no tricuspid valve regurgitation noted. There is no tricuspid valve prolapse or vegetation. There is no tricuspid valve stenosis. PULMONIC VALVE The pulmonary valve is normal in structure and function. There is no pulmonic valvular regurgitation. There is no pulmonic valvular stenosis. GREAT VESSELS The aortic root is normal in size. The ascending aorta is normal in size. Mild diffuse calfied plaque is noted in the descendint thoracic aort and arch. The pulmonary artery is normal. The IVC is normal in size and collapses >50% with inspiration. PERICARDIAL EFFUSION The pericardium appears normal. There is no pleural effusion. <Conclusion> The left ventricular function is normal. There is moderate concentric left ventricular hypertrophy. The ascending aorta is normal in size. Mild diffuse calfied plaque is noted in the descendint thoracic aort and arch. There is mild mitral valve regurgitation noted. No left atrial appendage thrombus. Cardioversion: with one biphasic shock of 200 joules, the patient converted to normal sinus
== END 2018-08-10 10:35 | disposition home or self-care (01) ==
LOC: C.CATHLAB 07:57
PROVIDERS: ATTEND Nuclear Medicine Nuclear Cardiology
DX: I48.91 Unspecified atrial fibrillation (principal); I51.7 Cardiomegaly
CPT/HCPCS: 93312; J2001; J2250; J2704